=== PATIENT | female | born 1950 | race Caucasian/White ===

== ENCOUNTER 2020-11-29 07:43 | Day surgery (SDC) | payer MEDICARE, BC, SELFPAY ==
[2020-11-22 13:21] VITALS: BMI 30.2
--- NOTE | 2020-11-25 07:49 | MHC.SHP ---
Pre-Procedural Eval Section A The patient is an INPATIENT: No The History & Physical has been completed within 30 days and I have reviewed it.: Yes Section B Chief Complaint: Cataract Left Eye Allergies: Allergies Allergy/AdvReac Type Severity Reaction Status Date / Time Penicillins Allergy Rash Verified 11/22/20 13:19 Plan Diagnosis/Plan: Unchanged I have reviewed the history and physical and performed a pertinent physical examination on my patient. No changes have occurred unless specified.
[2020-11-29 08:29] VITALS: BP 150/56; PULSE 55; RESP 18; TEMP 36.5; O2SAT 99
--- NOTE | 2020-11-29 08:41 | P.CONAN_ITS ---
[facility] Past Medical History Medical History Asthma COVID-19 vaccine series completed Elevated cholesterol HTN (hypertension) Surgical History Surgical History History of tubal ligation Hx of cholecystectomy Social History Social History Are you a primary childcare administrator to a significant other at home: No Do you presently have visiting nurse or other home services: No Patient Tobacco Use Status: Never used Tobacco Use of substances other than those prescribed or required for medical reasons: No Have you been hit, kicked, punched, or otherwise hurt by someone within the past year? If so, by whom?: No Are you DNR?: No Advance Directives: No Advance Directives Information Provided: No Advance Directives on File: No Recently lost weight without trying: No Eating poorly because of decreased appetite: No Nutrition Risks: No Nutritional Risk Meds Allergies Allergy/AdvReac Type Severity Reaction Status Date / Time Penicillins Allergy Rash Verified 11/29/20 08:03 Active Medications: Current Medications Generic Name Dose Route Start Last Admin Trade Name Freq PRN Reason Stop Dose Admin Lactated Ringer's 500 mls @ 50 mls/hr 11/29/20 08:45 Lr IV 11/29/20 18:44 .Q10H ASHELY Povidone Iodine 1 appl 11/29/20 08:26 Povidone Iodine 5 % Ophth Soln 30 Ml Bottle EYE-LEFT PREOP PRN Pre-Op Surgical Implant Prophy Home Medications Medication Instructions Recorded Confirmed Last Taken Type amlodipine 1 tab PO DAILY 11/22/20 11/22/20 Unknown History atenolol 1 tab PO DAILY 11/22/20 11/22/20 Unknown History pravastatin 1 tab PO BEDTIME 11/22/20 11/22/20 Unknown History Exam Exam Date and Time: November 29, 2020 0841 Height,Weight and Vital Signs: Height 5 ft 2 in Weight 74.843 kg Last Vital Signs Temp 97.7 F 11/29/20 08:29 Pulse 55 11/29/20 08:29 Resp 18 11/29/20 08:29 BP 150/56 H 11/29/20 08:29 Pulse Ox 99 11/29/20 08:29 Airway Mallampati Class: II (Multiple caps) TM Dist: >3cm Neck ROM: Full Heart: rrr Lungs: cta Assessment and Plan Assessment Anesthesia Assessment: Anesthesia Plan Discussed and Chart Reviewed Final Anesthetic Review NPO: Yes ASA Class: II Final Preanesthetic Review: No Changes in Pt Med Stat and Consent Obtained/Reviewed Patient Risk: Intermediate Procedure Risk: Intermediate Anesthetic Plan Anesthetic Plan: MAC: Disposition: Standard PACU
[2020-11-29] MEDS: Tetracaine HCl/PF 0.5% Oph Sol 4 ML DROPS 1 DROP EYE-LEFT (08:42)
[2020-11-29] MEDS: Tropicamide 1 % Ophth Sol 3 ML BTL 1 DROP EYE-LEFT ×3 (08:43→08:53)
[2020-11-29] MEDS: Phenylephrine HCL 2.5% Oph SoL 2 ML BOTTLE 1 DROP EYE-LEFT ×3 (08:46→08:57)
--- NOTE | 2020-11-29 10:09 | HO.PNOPHT ---
Ophthalmology Procedure Procedure Date of Service: 11/29/20 Ophthalmology Viscoelastic: Healon Duet Dual Pack Pro Ophthalmology Lenses: TECDESMOND [id number] (17) Procedure Notes: PREOPERATIVE DIAGNOSIS: Decreased visual acuity left eye secondary to cataract POSTOPERATIVE DIAGNOSIS: Same PROCEDURE: Left cataract extraction with intraocular lens insertion SURGEON: Luis Negrete M.D. ANESTHESIA: Topical/MAC ESTIMATED BLOOD LOSS: None COMPLICATIONS: None After obtaining informed consent, the patient was brought to the operation room suite and placed in the supine position. After adequate sedation per anesthesia, topical drops of Tetracaine were given to the left eye. The eye was then prepped and draped in the usual sterile fashion. The operating room microscope was then positioned over the operative eye and a lid speculum placed. A paracentesis was created. Viscoelastic was then instilled into the anterior chamber. A three plane incision was then created temporally, utilizing a 2.85 mm keratome. Capsulotomy forceps were then utilized to create a circular tear capsulotomy. Hydrodissection and hydrodelineation were carried out until adequate mobilization of the nucleus occurred. Phacoemulsification was then utilized to remove the dense central nucleus followed by removal of the cortical material utilizing the automated aspiration irrigation unit. Viscoat elastic was instilled into the posterior capsular bag followed by placement of a posterior chamber intraocular lens without difficulty. The residual Viscoat elastic was then removed utilizing the automated IA machine. The wound was check and found to be watertight. The patient tolerated the procedure well and the lid speculum was removed. Intracameral injection of Vigamox 0.1 mL followed by a subtenon injection of Kenalog-40 0.2 mL were administered. The patient will be seen in the a.m.
[2020-11-29 10:12] VITALS: BP 142/56; PULSE 52; RESP 16; TEMP 36.2; O2SAT 100
== END 2020-11-29 10:26 | disposition home or self-care (01) ==
PROVIDERS: PCP Hospitalist; Visit Provider Ophthalmology
PROC: (CPT 66985; principal; 2020-11-29 09:30)
DX: H25.12 Age-related nuclear cataract, left eye (principal); H54.7 Unspecified visual loss; I10 Essential (primary) hypertension; J45.909 Unspecified asthma, uncomplicated; Z79.899 Other long term (current) drug therapy; M32.9 Systemic lupus erythematosus, unspecified
CPT/HCPCS: 66984; J2250; J3010; J3300; V2632

== ENCOUNTER 2020-12-13 08:43 | Day surgery (SDC) | payer MEDICARE, BC, SELFPAY ==
[2020-11-22 13:24] VITALS: BMI 30.2
--- NOTE | 2020-12-09 07:46 | MHC.SHP ---
Pre-Procedural Eval Section A Date of Service: 12/09/20 The patient is an INPATIENT: No The History & Physical has been completed within 30 days and I have reviewed it.: Yes Section B Chief Complaint: Cataracts Right Eye Allergies: Allergies Allergy/AdvReac Type Severity Reaction Status Date / Time Penicillins Allergy Rash Verified 11/29/20 08:03 Plan Diagnosis/Plan: Unchanged I have reviewed the history and physical and performed a pertinent physical examination on my patient. No changes have occurred unless specified.
--- NOTE | 2020-12-10 10:10 | P.CONAN_ITS ---
Documented by User: Susy Boss 12/10/20 10:10 HPI - Anesthesia Eval Consult details Narrative: 70yo F for Right Cataract Extraction IOL Insertion PCP cleared Left eye 11/29: Fent 50, Midaz 1 [facility] Past Medical History Medical History Asthma COVID-19 vaccine series completed Elevated cholesterol HTN (hypertension) Surgical History Surgical History History of tubal ligation Hx of cholecystectomy Social History Social History Are you a primary home care and home health aides teacher to a significant other at home: No Do you presently have visiting nurse or other home services: No Patient Tobacco Use Status: Never used Tobacco Use of substances other than those prescribed or required for medical reasons: No Have you been hit, kicked, punched, or otherwise hurt by someone within the past year? If so, by whom?: No Are you DNR?: No Advance Directives: No Advance Directives Information Provided: No Advance Directives on File: No Recently lost weight without trying: No Eating poorly because of decreased appetite: No Nutrition Risks: No Nutritional Risk Patient : No Meds Allergies Allergy/AdvReac Type Severity Reaction Status Date / Time Penicillins Allergy Rash Verified 11/29/20 08:03 Home Medications Medication Instructions Recorded Confirmed Last Taken Type amlodipine 1 tab PO DAILY 11/22/20 11/22/20 Unknown History atenolol 1 tab PO DAILY 11/22/20 11/22/20 Unknown History pravastatin 1 tab PO BEDTIME 11/22/20 11/22/20 Unknown History Exam Exam Date and Time: December 10, 2020 1010 Height,Weight and Vital Signs: Height 5 ft 2 in Weight 74.843 kg Assessment and Plan Assessment Anesthesia Assessment: Chart Reviewed Documented by User: Louis Fonseca 12/13/20 10:27 [facility] Past Medical History Medical History Asthma COVID-19 vaccine series completed Elevated cholesterol HTN (hypertension) Surgical History Surgical History History of tubal ligation Hx of cholecystectomy Social History Social History Are you a primary home care and home health aides teacher to a significant other at home: No Do you presently have visiting nurse or other home services: No Patient Tobacco Use Status: Never used Tobacco Use of substances other than those prescribed or required for medical reasons: No Have you been hit, kicked, punched, or otherwise hurt by someone within the past year? If so, by whom?: No Are you DNR?: No Advance Directives: No Advance Directives Information Provided: No Advance Directives on File: No Recently lost weight without trying: No Eating poorly because of decreased appetite: No Nutrition Risks: No Nutritional Risk Patient : No Meds Allergies Allergy/AdvReac Type Severity Reaction Status Date / Time Penicillins Allergy Rash Verified 11/29/20 08:03 Home Medications Medication Instructions Recorded Confirmed Last Taken Type amlodipine 1 tab PO DAILY 11/22/20 11/22/20 Unknown History atenolol 1 tab PO DAILY 11/22/20 11/22/20 Unknown History pravastatin 1 tab PO BEDTIME 11/22/20 11/22/20 Unknown History Exam Airway Mallampati Class: II TM Dist: >3cm Neck ROM: Full Loose/Missing/Broken Teeth: Yes (many crowns, 1 lower missing tooth) Heart: [id number] Lungs: CTA b/l Assessment and Plan Assessment Anesthesia Assessment: Anesthesia Plan Discussed, PAT Visit and Chart Reviewed Final Anesthetic Review NPO: Yes ASA Class: II Final Preanesthetic Review: No Changes in Pt Med Stat, Meds/Allgs Chart Reviewed, Consent Obtained/Reviewed and Anes Risks/Benef Reviewed Patient Risk: Low Procedure Risk: Low Assessment/Block/Sedation in SS: Assess/Block/Sedation-SS Anesthetic Plan Anesthetic Plan: MAC: and Agree w/ Assess. and Plan Disposition: Standard PACU
[2020-12-13 10:05] VITALS: BP 169/69; PULSE 59; RESP 18; TEMP 36.4; O2SAT 99
[2020-12-13] MEDS: Tetracaine HCl/PF 0.5% Oph Sol 4 ML DROPS 1 DROP EYE-RIGHT (10:19)
[2020-12-13] MEDS: Tropicamide 1 % Ophth Sol 3 ML BTL 1 DROP EYE-RIGHT ×3 (10:22→10:36)
[2020-12-13] MEDS: Lactated Ringers 500 ML 50 ML IV (10:24)
[2020-12-13] MEDS: Phenylephrine HCL 2.5% Oph SoL 2 ML BOTTLE 1 DROP EYE-RIGHT ×3 (10:27→10:40)
--- NOTE | 2020-12-13 12:18 | HO.PNOPHT ---
Ophthalmology Procedure Procedure Date of Service: 12/13/20 Ophthalmology Viscoelastic: Healon Duet Dual Pack Pro Ophthalmology Lenses: TECNIS [id number] (16.5) Procedure Notes: PREOPERATIVE DIAGNOSIS: Decreased visual acuity right eye secondary to cataract POSTOPERATIVE DIAGNOSIS: Same PROCEDURE: Right cataract extraction with intraocular lens insertion SURGEON: Luis Negrete M.D. ANESTHESIA: Topical/MAC ESTIMATED BLOOD LOSS: None COMPLICATIONS: None After obtaining informed consent, the patient was brought to the operating room suite and placed in the supine position. After adequate sedation per anesthesia, topical drops of Tetracaine were given to the right eye. The eye was then prepped and draped in the usual sterile fashion. The operating room microscope was then positioned over the operative eye and a lid speculum placed. A paracentesis was created. Viscoelastic was then instilled into the anterior chamber. A three plane incision was then created temporally, utilizing a 2.85 mm keratome. Capsulotomy forceps were then utilized to create a circular tear capsulotomy. Hydrodissection and hydrodelineation were carried out until adequate mobilization of the nucleus occurred. Phacoemulsification was then utilized to remove the dense central nucleus followed by removal of the cortical material utilizing the automated aspiration irrigation unit. Viscoelastic was instilled into the posterior capsular bag followed by placement of a posterior chamber intraocular lens without difficulty. The residual Viscoelastic was then removed utilizing the automated IA machine. The wound was checked and found to be watertight. The patient tolerated the procedure well and the lid speculum was removed. Intracameral injection of Vigamox 0.1 mL followed by a subtenon injection of Kenalog-40 0.2 mL were administered. The patient will be seen in the a.m.
[2020-12-13 12:41] VITALS: BP 161/70; PULSE 55; RESP 18; TEMP 36.1; O2SAT 99
== END 2020-12-13 13:11 | disposition home or self-care (01) ==
PROVIDERS: PCP Hospitalist; Visit Provider Ophthalmology
PROC: (CPT 66985; principal; 2020-12-13 11:20)
DX: H25.11 Age-related nuclear cataract, right eye (principal); H54.7 Unspecified visual loss; J45.909 Unspecified asthma, uncomplicated; I10 Essential (primary) hypertension; Z79.899 Other long term (current) drug therapy; Z88.0 Allergy status to penicillin
CPT/HCPCS: 66984; J3010; J3300; V2632

== ENCOUNTER 2023-12-10 12:50 | Outpatient (REF) | payer MEDICARE, BC, SELFPAY | END 2023-12-10 12:51 | disposition home or self-care (01) | LOC: HO.SH 12:50 | PROVIDERS: Visit Provider Nurse Practitioner Family | DX: Z01.118 Encounter for examination of ears and hearing with other abnormal findings (principal); H90.42 Sensorineural hearing loss, unilateral, left ear, with unrestricted hearing on the contralateral side | CPT/HCPCS: 92557 ==